=== PATIENT | female | born 1990 | race Caucasian/White ===

== ENCOUNTER 2018-05-26 09:45 | Emergency (ER) | payer OTHER, SELFPAY ==
--- NOTE | 2018-05-26 09:48 | ED_ITS ---
HPI - Chest Pain General Chief Complaint: Chest Pain Stated Complaint: chest pain, sob Time Seen by Provider: 05/26/18 09:47 Source: patient Mode of arrival: ambulatory Limitations: no limitations History of Present Illness HPI narrative: patient is a 28-year-old otherwise healthy female at approximately 24 weeks EGA. . Here for evaluation of left-sided chest pain and shortness of breath. Patient states that her symptoms started on Saturday which was approximately 3 days ago. She states that it did start with a cough. Was seen at an outside facility on Saturday after her symptoms worsened. By her report and also by medical records that were obtained patient had a chest x-ray which was unremarkable. Labs which were unremarkable. D- dimer which was negative. Patient was tachycardic on the EKG. She was discharged. She reads ports to our emergency department today with worsening symptoms. She states now she cannot take a deep breath secondary to the pain. She also states that when she tries to fight through the pain she feels like she cannot take a deep breath. The left-sided chest pain is not reproducible with palpation. Has worsening pain with lying flat. Denies any vaginal bleeding or vaginal discharge or cramping. No trauma. Related Data Home Medications Medication Instructions Recorded Confirmed [id number] fumarate-FA 1 tab PO DAILY 05/26/18 05/26/18 [] Allergies Allergy/AdvReac Type Severity Reaction Status Date / Time Penicillins Allergy Verified 05/26/18 11:27 Review of Systems Constitutional Denies fatigue, Denies fever(s), Denies headache(s) and Denies lethargy ENT Ears, Nose, Mouth, and Throat: Denies vertigo, Denies dizziness, Denies facial pain, Denies headache(s), Denies sinus pressure and Denies sore throat Cardiovascular Reports chest pain, Denies syncope, Denies rapid heart rate, Denies pedal edema , Denies edema, Denies irregular heart rhythm, Denies leg edema, Denies lightheadedness, Denies palpitations and Reports dyspnea Respiratory Denies chest congestion, Reports cough, Reports pain on inspiration, Reports pain with cough, Reports dyspnea and Denies wheezing Gastrointestinal Gastrointestinal: Denies abdominal pain, Denies cramping, Denies dyspepsia, Denies diarrhea, Denies nausea and Denies vomiting Genitourinary Denies hematuria, Denies dysuria, Denies pelvic pain, Denies urinary hesitancy, Denies urinary urgency and Denies vaginal discharge Musculoskeletal Denies myalgias, Denies arthralgias, Denies muscle cramps and Denies numbness Integumentary/Breasts Denies lesions and Denies rash Neurologic Denies behavioral changes, Denies vertigo, Denies dizziness, Denies syncope, Denies headache(s), Denies numbness and Denies convulsions Psychiatric Denies behavioral changes Endocrine Denies fatigue and Denies palpitations Hematologic/Lymphatic Denies easy bleeding and Denies easy bruising Allergic/Immunologic Denies urticaria and Denies wheezing Exam Initial Vital Signs Initial Vital Signs: Vital Signs Temperature 98.2 F 05/26/18 09:53 Pulse Rate 110 H 05/26/18 09:53 Respiratory Rate 15 05/26/18 09:53 Blood Pressure 124/84 H 05/26/18 09:53 Pulse Oximetry 100 05/26/18 09:53 Const General: cooperative, healthy appearing, comfortable ( Tachypneic), well developed, well groomed and in distress ( mild) Orientation: alert, awake and oriented x3 HENMT Head: normal to inspection, normocephalic and atraumatic Ears: hearing grossly normal bilaterally Face and sinus: normal facial exam Chest Other: patient with some tenderness to palpation on the left side of her chest under her left breast. She states that this was not the symptoms that brought her in. Resp Effort & Inspection: cough, no grunting, labored ( Tachypneic), no retractions and tachypneic Auscultation: clear to auscultation bilaterally Cardio Rate: tachycardic Rhythm: regular rhythm Pulses: radial pulses present GI Inspection: normal to inspection and non-distended Palpation: soft, No firm and No tender Back/Spine/Pelvis Back: No CVA tenderness Skin Lesions: no lesions Rashes: no rashes Neuro General: alert, awake and oriented x3 Cognition: normal cognition Speech: speech normal Motor: muscle tone normal throughout Sensory Exam: no sensory deficits noted Extrem General: normal to inspection, capillary refill normal, No no pedal edema, no calf tenderness, No calf tenderness and No edema Psych Appearance: grossly normal, well kempt and disheveled Course Orders Ordered: ED Orders 05/26/18 09:47 EKG-12 Lead Stat 05/26/18 10:23 CT angio chest PE protocol Stat 05/26/18 10:35 B Type Natriuretic Peptide Stat Complete Blood Count AUTO DIFF Stat Comprehensive Metabolic Panel Stat Lipase Stat Partial Thromboplastin Time Stat Prothrombin Time INR Stat Troponin I Stat Discontinued Medications Sodium Chloride (Normal Saline 0.9%) 1,000 mls @ 1,000 mls/hr IV BOLUS ONE Stop: 05/26/18 11:21 Last Admin: 05/26/18 10:45 Dose: 1,000 mls/hr Vital Signs - 8 hr 05/26/18 09:53 05/26/18 10:30 Temperature 98.2 F Pulse Rate 110 H 103 H Respiratory Rate 15 14 Blood Pressure 124/84 H Blood Pressure [Left Arm] 126/72 H Pulse Oximetry 100 99 MDM - Chest Pain Medical Records Data Attestation: I reviewed the patient's medical records. Lab Data Attestation: I reviewed the patient's lab results. Result diagrams: 05/26/18 10:35 05/26/18 10:35 Lab Results 05/26/18 05/26/18 05/26/18 Range/Units 10:35 10:35 10:35 WBC 9.2 (4.5-11.0) X10^3/uL RBC 4.39 (4.0-5.2) X10^6/uL Hgb 12.9 (12.0-16.0) g/dL Hct 37.7 (36-46) % MCV 85.9 (80-100) fL MCH 29.3 (26-34) PG MCHC 34.1 (30-36) % RDW 13.6 (11.6-14.8) % Plt Count 204 (150-400) X10^3/uL Neut % (Auto) 73.8 (50-75) % Lymph % (Auto) 18.0 L (25-40) % Cassia % (Auto) 7.9 (3-14) % Eos % (Auto) 0.1 L (2-4) % Baso % (Auto) 0.2 (0-2) % Neut # (Auto) 6800 H (4774-4333) /uL PT 10.8 (10.1-12.7) SECONDS INR 1.0 (0.9-1.3) APTT 29 (26.4-36.2) SECONDS Sodium 139 (137-145) mmol/L Potassium 3.8 (3.4-5.1) mmol/L Chloride 103 (98-107) mmol/L Carbon Dioxide 22 (22-32) mmol/L BUN 4 L (7-17) mg/dL Creatinine 0.40 L (0.52-1.04) mg/dL Estimated GFR > 60.0 (>60) mL/min BUN/Creatinine Ratio 10.0 (6-22) Glucose 91 (70-100) mg/dL Calcium 9.5 (8.4-10.2) mg/dL Total Bilirubin 0.3 (0.2-1.3) mg/dL AST 17 (14-36) IU/L ALT 17 (9-52) IU/L Alkaline Phosphatase 77 (38-126) U/L Troponin I < 0.012 (0.01-0.034) ng/mL B-Natriuretic Peptide < 100.0 (<100) Total Protein 7.7 (6.3-8.2) g/dL Albumin 4.3 (3.5-5.0) g/dL Globulin 3.4 (1.7-4.1) g/dL Albumin/Globulin Ratio 1.3 (1.0-2.8) Lipase 29 (23-300) U/L Imaging Data CT scan - chest: Radiologist's impression: PROCEDURE: CT ANGIO CHEST PE PROTOCOL INDICATIONS: Chest pain, shortness of breath, tachycardia TECHNIQUE: After the administration of intravenous contrast, 2 mm thick sections acquired from the pulmonary apices to the posterior costophrenic angles. 3-dimensional maximum intensity projection (MIP) coronal and sagittal reformats were then acquired through the thorax. For radiation dose reduction, the following was used: automated exposure control, adjustment of mA and/or kV according to patient size. COMPARISON: None. FINDINGS: Image quality: Excellent. Pulmonary arteries: Pulmonary arteries are normal in size, and demonstrate no intraluminal filling defects to suggest central pulmonary embolism. Lungs and pleura: Lungs are clear. No pleural effusions or pneumothorax. Central and peripheral airways are patent. Mediastinum: Heart size is normal, without pericardial effusion. No mediastinal or hilar adenopathy. Thoracic aorta is normal in caliber and enhancement. Esophagus is normal in caliber, without hiatal hernia. Bones and chest wall: No suspicious bony lesions. Ribs and thoracic spine appear intact throughout. Thyroid gland appears normal. No axillary or supraclavicular adenopathy. Abdomen: Visualized upper abdominal solid organs appear normal in the early arterial phase of enhancement. IMPRESSION: 1. Exam is negative for pulmonary embolic disease. 2. Lung is clear with no pneumothorax, infiltrate or pleural effusion. Dictated by: Guillermo Padilla M.D. on 05/26/2018 at 11:26 Approved by: Guillermo Padilla M.D. on 05/26/2018 at 11:30 ECG Data Attestation: I personally reviewed and interpreted this ECG as follows: Prior ECG tracings: available for review Interpretation: sinus tachycardia ventricular rate of 107 Normal axis Normal intervals Normal QRS normal QTC Unchanged from EKG 2 days ago MDM Narrative Medical decision making narrative: patient with a unchanged EKG from her outside emergency department visit 2 days ago. I was able to review those records and patient also had a negative chest x-ray. Based upon her worsening symptoms over the past 2 days, her tachypnea, and her tachycardia, we had a long discussion regarding her risks of having a pulmonary embolism. We had a long discussion regarding workup of this to include lower extremity DVT ultrasounds, V/Q scans, and CT angiograms. Patient is a nurse here at the hospital. She is aware of the risks and benefits of the studies especially while . After discussion of these risks and benefits to include radiation exposure to her unborn child the patient did opt to have the CT angiography. She did sign a consent prior to this study. This study was eventually unremarkable and showed no signs of pulmonary embolism. There is also no other signs of pneumonia, her symptoms do not seem to be reproducible with palpation. She has no skin changes. Her physical exam and CTA is not consistent with other types of infections. She does not have a collapsed lung. She has no murmurs on exam. EKG is unremarkable. Considered other diagnoses such as pulmonary edema however CTA was negative for this. Considered other diagnoses such as preeclampsia however patient is not hypertensive and has no other signs or symptoms of this. Bedside ultrasound shows single fetus with cardiac activity. Patient declined the offer for pain medications to see if this would not improve her symptoms. We also discussed other diagnosis such as cardiomyopathies. Informed her that she needed to call her OB doctor today to discuss a earlier follow-up then which she has scheduled for the end of this month and also discussed the indications for an echocardiogram. She expressed understanding of all this. She was given return precautions. She expressed agreement with plan. Discharge Plan Departure Patient Disposition: Home, Self-Care Clinical Impression: Shortness of breath, Tachycardia, Instructions: DI for Shortness of Breath Activity Restrictions/Additional Instructions: would recommend that you contact your OB provider today to discuss Your symptoms and to discuss the indication for any further workup. you may return to the emergency department for any new or worsening symptoms. Prescriptions: No Action [id number] fumarate-FA [] 28-800 mg-mcg Tablet 1 tab PO DAILY RF: 0
[2018-05-26 09:53] VITALS: BP 124/84; PULSE 110; RESP 15; TEMP 36.8; O2SAT 100
--- NOTE | 2018-05-26 10:23 | DI.CT.S_ITS ---
PROCEDURE: CT ANGIO CHEST PE PROTOCOL INDICATIONS: Chest pain, shortness of breath, tachycardia TECHNIQUE: After the administration of intravenous contrast, 2 mm thick sections acquired from the pulmonary apices to the posterior costophrenic angles. 3-dimensional maximum intensity projection (MIP) coronal and sagittal reformats were then acquired through the thorax. For radiation dose reduction, the following was used: automated exposure control, adjustment of mA and/or kV according to patient size. COMPARISON: None. FINDINGS: Image quality: Excellent. Pulmonary arteries: Pulmonary arteries are normal in size, and demonstrate no intraluminal filling defects to suggest central pulmonary embolism. Lungs and pleura: Lungs are clear. No pleural effusions or pneumothorax. Central and peripheral airways are patent. Mediastinum: Heart size is normal, without pericardial effusion. No mediastinal or hilar adenopathy. Thoracic aorta is normal in caliber and enhancement. Esophagus is normal in caliber, without hiatal hernia. Bones and chest wall: No suspicious bony lesions. Ribs and thoracic spine appear intact throughout. Thyroid gland appears normal. No axillary or supraclavicular adenopathy. Abdomen: Visualized upper abdominal solid organs appear normal in the early arterial phase of enhancement. IMPRESSION: 1. Exam is negative for pulmonary embolic disease. 2. Lung is clear with no pneumothorax, infiltrate or pleural effusion. Dictated by: Guillermo Padilla M.D. on 05/26/2018 at 11:26 Approved by: Guillermo Padilla M.D. on 05/26/2018 at 11:30
[2018-05-26 10:30] VITALS: BP 126/72; PULSE 103; RESP 14; O2SAT 99
[2018-05-26 10:45] LABS: Add Manual Diff / Slide Review NO; Basophils Percent Auto 0.2 % (0-2); Eosinophils Percent Auto 0.1 % (2-4); Hematocrit 37.7 % (36-46); Hemoglobin 12.9 g/dL (12.0-16.0); Mean Corpuscular HGB Conc 34.1 % (30-36); Mean Corpuscular Hemoglobin 29.3 PG (26-34); Mean Corpuscular Volume 85.9 fL (80-100); Monocytes Percent Auto 7.9 % (3-14); Neutrophils Absolute Auto 6800 /uL (3000-5900); Neutrophils Percent Auto 73.8 % (50-75); Platelet Count 204 X10^3/uL (150-400); Red Blood Cell Count 4.39 X10^6/uL (4.0-5.2); Red Cell Distribution Width 13.6 % (11.6-14.8); White Blood Cell Count 9.2 X10^3/uL (4.5-11.0)
[2018-05-26] MEDS: SODIUM CHLORIDE 0.9% 1,000 ML 1000 ML IV (10:45)
[2018-05-26 10:50] LABS: Prothrombin Time 10.8 SECONDS (10.1-12.7)
[2018-05-26 10:53] LABS: PTT Partial Thromboplastin Tim 29 SECONDS (26.4-36.2)
[2018-05-26 10:54] LABS: Alanine Aminotransferase 17 IU/L (9-52); Albumin 4.3 g/dL (3.5-5.0); Albumin Globulin Ratio 1.3 (1.0-2.8); Alkaline Phosphatase 77 U/L (38-126); Aspartate Aminotransferase 17 IU/L (14-36); Bilirubin Total 0.3 mg/dL (0.2-1.3); Blood Urea Nitrogen 4 mg/dL (7-17); Calcium 9.5 mg/dL (8.4-10.2); Carbon Dioxide 22 mmol/L (22-32); Chloride 103 mmol/L (98-107); Estimated Glomerular Filt Rate > 60.0 mL/min (>60); Globulin 3.4 g/dL (1.7-4.1); Glucose 91 mg/dL (70-100); HEMOLYSIS < 15 (0-50); Lipase 29 U/L (23-300); Potassium 3.8 mmol/L (3.4-5.1); Sodium 139 mmol/L (137-145); Total Protein 7.7 g/dL (6.3-8.2)
[2018-05-26 11:07] LABS: B Type Natriuretic Peptide < 100.0 (<100); Troponin I < 0.012 ng/mL (0.01-0.034)
[2018-05-26 12:00] VITALS: BP 106/58; PULSE 98; RESP 20; TEMP 35.9; O2SAT 100
== END 2018-05-26 12:01 | disposition home or self-care (01) ==
PROVIDERS: Emergency Provider Emergency Medicine
DX: O99.412 Diseases of the circulatory system complicating pregnancy, second trimester (principal); Z3A.24 24 weeks gestation of pregnancy
CPT/HCPCS: 36591; 71275; 80053; 83690; 83880; 84484; 85025; 85610; 85730; 93005; 96360; 96361; 99283; 99285

== ENCOUNTER → 2018-08-11 12:20 | Outpatient (CLI) | payer OTHER, SELFPAY ==
[2018-08-12 10:01] LABS: Strep Grp B PCR NEG for Grp B Strep
== END ==
PROVIDERS: Visit Provider Family Medicine
DX: Z3A.36 36 weeks gestation of pregnancy (principal)
CPT/HCPCS: 87653

== ENCOUNTER 2018-09-03 10:59 | Inpatient (IN) | payer OTHER, SELFPAY ==
[2018-09-03] MEDS: LACTATED RINGERS 1,000 ML 100 ML IV (12:29)
--- NOTE | 2018-09-03 12:31 | PM.OBHP.1 ---
OB HPI Date/Time Date of admission: 09/03/18 Date Patient Seen: 09/03/18 Time Patient Seen: 12:45 History of Present Condition Chief complaint: OBSERVATION : 2 Para: 1 Estimated Date of Delivery: 09/12/18 Estimated Gestational Age (weeks): 38+5 Narrative: Angelita Linares is a 28 year at 38+5 weeks gestation by LMP confirmed by first trimester US. Initial care with the [facility]. Patient transferred care at 33 weeks. Patient reports leaking of fluid since 7:30 AM today. LMP 12/27/17, MARCELLO 09/12/18 US 02/20/18 at 10.6 wks, MARCELLO 09/13/18 US 04/28/18 with normal anatomy, noted nuchal cord History of Present care: good care, initiated at week # (10) and pounds weight gain (22 lbs) Dating criteria: LMP confirmed by 1st trimester US Ultrasounds: normal 1st trimester US and normal mid trimester US Obstetrical complications: none Medical complications: none Preadmission Labs Blood type: O (+) positive -: Antibody screen: negative, GBS status: negative, HBsAG: negative, HIV: negative and RPR/VDLR: negative -: Chlamydia screen: not detected and Gonorrhea screen: not detected -: Rubella: immune and Varicella: immune HCT: 42.5 HCAB: negative Quad screen: Normal 1 hr GTT: 131 Prior (ies) History: 08/22/16 at 39 weeks, induction for oligohydromnios, epidural, 6# 8oz female Evaluation Evaluation Baseline heart rate: 130 Variability: Moderate (11-25) monitor accelerations: Present monitor decelerations: Absent Contraction Frequency (minutes): 6 Uterine Contraction Intensity: Mild Category of Tracing: I Cervical dilation (cm): 4 Cervical effacement (%): 75 station: -2 Non-invasive Membranes Rupture Test: positive PFSH Medical History Spontaneous vaginal delivery (Resolved) Social History marital status: number of children: 1 occupational status: employed (RN at [employer]) Smoking Status: Never smoker alcohol intake: never substance use type: does not use Meds Home Medications Medication Instructions Recorded Confirmed Type [id number] fumarate-FA 1 tab PO DAILY 05/26/18 05/26/18 History [] docosahexanoic acid 200 mg capsule See Label Instructions PO .qd #90 07/29/18 07/29/18 Rx cap Allergies Allergy/AdvReac Type Severity Reaction Status Date / Time Penicillins Allergy Verified 05/26/18 11:27 Review of Systems Review of Systems All systems reviewed & are unremarkable except as noted in HPI and below Exam Const General: cooperative and healthy appearing [facility] Head: normal to inspection Ears: hearing grossly normal bilaterally Nose: external nose normal Face and sinus: normal facial exam Mouth: oral mucosae normal Teeth and gingiva: dentition normal Throat: posterior oropharynx normal Eyes General: appearance normal, both eyes and all related structures Neck Neck: normal visual inspection Resp Effort & Inspection: normal respiratory effort Auscultation: clear to auscultation bilaterally Cardio Rate: regular rate Rhythm: regular rhythm Heart Sounds: S1 normal, S2 normal and no murmurs External Female Exam: external appearance normal Presentation: vertex Estimated Weight (lbs): 7 Amniotic Fluid: clear Extrem General: normal to inspection and no pedal edema Assessment and Plan (1) 38 weeks gestation of : Current visit: Yes Status: Acute Plan: Plan: 28 year old at 38+5 weeks gestation with SROM at 7:30 AM today. Amnisure positive. Cervix is favorable with a mock score of 8. Plan - Start pitocin since it has been 5 hours since ROM - Epidural upon patient request - Expectant management, anticipate vaginal delivery
[2018-09-03] MEDS: ONDANSETRON 4 MG/2 ML INJ IV (15:50)
--- NOTE | 2018-09-03 17:21 | PM.OBPRVD ---
Narrative: VAGINAL DELIVERY NOTE BRIEF HISTORY: Patient is a 28-year-old now 2 at 38+5 weeks who gave on 09/03/18 at 1635. MARCELLO: 09/12/18 Hospital problems: 38 weeks of Epidural anesthesia STAGE I: Labor Patient presented to the center after spontaneous rupture of membranes with clear fluid at approximately 7:30 a.m. on 09/03/18. She was lizzette though not painful. Cervix was 4 cm dilated. Plan was to initiate Pitocin after a walk however patient progressed into labor spontaneously at 1:00 p.m.. Received an epidural for pain control. She was complete at 2:00 p.m.. Stage I of labor lasted 3 hr. heart tones were category one throughout labor. STAGE II: Delivery Patient pushed for 35 min and delivered a vigorous male over an intact perineum at 4:35 p.m.. was vertex and TREY on delivery. Apgars were nine and nine. STAGE III: Placenta/Cord Placenta delivered spontaneously after active management at 4:43 p.m. with a three vessel cord and intact. Patient had a very small left labial laceration which was not repaired and a small first-degree laceration of the posterior fourchette which was also not repaired. Hemostasis achieved after delivery. Fundus was firm at umbilicus. EBL 200 mL. Needle and sponge counts were correct. The vagina was inspected and no items were left in situ. Patient was doing well with Dickens , her and at bedside.
[2018-09-03 23:46] VITALS: BP 114/75
[2018-09-04] MEDS: IBUPROFEN 600 MG TABLET PO ×2 (02:17→08:42)
--- NOTE | 2018-09-04 10:19 | PM.OBDS.1 ---
Discharge Providers Date of admission: 09/03/18 10:59 Primary care physician: Vonda Cohn DO Consults: 09/03/18 18:29 Consult to Enterprise Data Architect Routine Comment: Discharge provider: Vonda Cohn DO Discharge Date: 09/04/18 Summary Date Patient Seen: 09/04/18 Time Patient Seen: 10:20 Hospital Course: Patient is a 28-year-old status post spontaneous vaginal delivery on 09/03/18. , labor and delivery were uncomplicated. Patient presented after spontaneous rupture of membranes at home and progressed into labor spontaneously with delivery of a vigorous male infant. course has been unremarkable. is going well though may be tongue-tied. Bleeding is moderate. Patient is ambulating, voiding and eating without difficulty. Pain is well controlled with ibuprofen. Patient has no concerns. Counseled patient to call for fevers, severe pain or bleeding through more than a pad an hour. Follow up with Dr. Cohn in clinic in six weeks. Exam Temperature 36.1? Blood pressure 110/68 Heart rate 78 General: Awake and alert, no acute distress. HEENT: NCAT, EOMI, moist oral mucosa CV: Regular rate and rhythm, no murmurs, rubs or gallops Lungs: CTAB, no wheezes, rales, or rhonchi Abdomen: Soft, nontender; bowel tones active; uterus firm 1 cm below umbilicus Extremities: Warm, no edema, 2+ pedal pulses bilaterally Peripartum Data Infant Delivery Method: Natural Vaginal Laceration description: Labial (Left first-degree) complications: none Discharge Diagnosis (1) 38 weeks gestation of : Status: Acute (2) Spontaneous vaginal delivery: Status: Acute Status at Discharge Functional status at discharge: independent ambulation Overall status at discharge: patient is back to baseline Time Spent with Patient Total time spent providing and/or coordinating discharge services: Less than 30 minutes Discharge Plan Discharge Plan Patient Disposition: Home Discharge Med Rec/Prescriptions Prescriptions: No Action docosahexanoic acid [ DHA] 200 mg capsule See Label Instructions PO .qd Qty: 90 RF: 0 [id number] fumarate-FA [] 28-800 mg-mcg Tablet 1 tab PO DAILY RF: 0 Follow up/Referrals: Vonda Cohn DO [Physician] - 6 Weeks Discharge Data Attending Provider: Vonda Cohn Admit Date/Time: 09/03/18 10:59
--- NOTE | 2018-09-04 10:24 | P.DS_ITS ---
Discharge Providers Date of admission: 09/03/18 10:59 Primary care physician: Vonda Cohn DO Consults: 09/03/18 18:29 Consult to Composing Room Supervisor Routine Comment: Discharge provider: Vonda Cohn DO Discharge Date: 09/04/18 Summary Date Patient Seen: 09/04/18 Time Patient Seen: 10:20 Hospital Course: Patient is a 28-year-old status post spontaneous vaginal delivery on . , labor and delivery were uncomplicated. Patient presented after spontaneous rupture of membranes at home and progressed into labor spontaneously with delivery of a vigorous male infant. course has been unremarkable. is going well though infant may be tongue-tied. Bleeding is moderate. Patient is ambulating, voiding and eating without difficulty. Pain is well controlled with ibuprofen. Patient has no concerns. Counseled patient to call for fevers, severe pain or bleeding through more than a pad an hour. Follow up with Dr. Cohn in clinic in six weeks. Exam Temperature 36.1? Blood pressure 110/68 Heart rate 78 General: Awake and alert, no acute distress. HEENT: NCAT, EOMI, moist oral mucosa CV: Regular rate and rhythm, no murmurs, rubs or gallops Lungs: CTAB, no wheezes, rales, or rhonchi Abdomen: Soft, nontender; bowel tones active; uterus firm 1 cm below umbilicus Extremities: Warm, no edema, 2+ pedal pulses bilaterally Peripartum Data Delivery Method: Natural Vaginal Laceration description: Labial (Left first-degree) complications: none Discharge Diagnosis (1) 38 weeks gestation of : Status: Acute (2) Spontaneous vaginal delivery: Status: Acute Status at Discharge Functional status at discharge: independent ambulation Overall status at discharge: patient is back to baseline Time Spent with Patient Total time spent providing and/or coordinating discharge services: Less than 30 minutes Discharge Plan Discharge Plan Patient Disposition: Home Discharge Med Rec/Prescriptions Prescriptions: No Action docosahexanoic acid [ DHA] 200 mg capsule See Label Instructions PO .qd Qty: 90 RF: 0 [id number] fumarate-FA [] 28-800 mg-mcg Tablet 1 tab PO DAILY RF: 0 Follow up/Referrals: Vonda Cohn DO [Physician] - 6 Weeks Discharge Data Attending Provider: Vonda Cohn Admit Date/Time: 09/03/18 10:59
[2018-09-04 11:02] VITALS: BP 114/75; PULSE 75; RESP 18; TEMP 36.4
[2018-09-04 16:39] VITALS: BP 114/75; PULSE 75; RESP 18; TEMP 36.4
== END 2018-09-04 17:00 | disposition home or self-care (01) | DRG 807 ==
PROVIDERS: Admitting Provider Family Medicine; Visit Provider Family Medicine
DX: O80 Encounter for full-term uncomplicated delivery (principal); Z37.0 Single live birth; Z3A.38 38 weeks gestation of pregnancy
CPT/HCPCS: 01967; 59050; 59410; G0379; J2405